=== PATIENT | male | born 1980 | race Caucasian/White ===

== ENCOUNTER 2017-07-24 20:15 | Emergency (ER) | payer MEDICAID ==
[~2017-07-24] VITALS: Ht 167.6 cm; Wt 72.6 kg
[2017-07-24 20:15] VITALS: BP_SYST 128
[~2017-07-24 20:15] MED LIST: DOXY100T2 PO; IBUP-1969; SULF1TAB48 PO
[2017-07-24] MEDS: LIDOCAINE 2%, 20 ML MDV IJ ONE (23:54)
[2017-07-24] MEDS: DIPH-TET-PERTUS Vaccine 0.5 ML VIAL (ADACEL) I.M. ONE (23:56)
[2017-07-24] MEDS: KETOROLAC TROMETHAMINE 60 MG/2 ML VIAL IM ONE (23:58)
[2017-07-24] MEDS ORDERED: BACITRACIN 1 GM OINT TP ONE (23:59)
[2017-07-25 00:11] VITALS: BP_SYST 132
== END 2017-07-25 00:11 | disposition home or self-care (01) ==
LOC: SED 20:15
DX: S61.210A Laceration without foreign body of right index finger without damage to nail, initial encounter (principal); Z88.1 Allergy status to other antibiotic agents; W31.89XA Contact with other specified machinery, initial encounter; Y93.89 Activity, other specified; Y92.89 Other specified places as the place of occurrence of the external cause; Y99.8 Other external cause status
CPT/HCPCS: 12002; 90471; 90715; 96372; 99284; J1885

== ENCOUNTER 2020-01-31 23:54 | Emergency (ER) | payer MEDICAID ==
[~2020-01-31] VITALS: Ht 170.2 cm; Wt 72.6 kg
[2020-01-31 23:54] VITALS: BP_SYST 152
--- NOTE | 2020-02-01 00:05 | NUR ---
Patient triaged and placed in waiting room. VSS and patient appears in no acute distress at this time. Awaiting available bed, and MD notified of need for MSE.
--- NOTE | 2020-02-01 00:20 | NUR ---
Patient to ER bed 3 to gown for evaluation. Side rails up. Report given to EFRAÍN Vieyra.
--- NOTE | 2020-02-01 00:25 | NUR ---
patient is alert and oriented x4 and is ind[place]ian speaking. patient complains of left shoulder, elbow, back, and chest pain that started on tuesday. patient states pain feels like pressure and 'cold air' when he inhales. patient states he feels pain when he breathes in deeply. Patient rates his pain a 7 out of 10. patient states ibuprofen relieves his pain a bit but he did not take it today. Patient states his pain is starting to travel to his right side. Patient states his pain started when he was moving fruniture but denies falling or feeling like he pulled a muscle. Patient states he feels shortness of breath when walking and when he turns his head. Patient states he had PNA in september. patient denies nausea, vomiting, diarrhea, fever, cough, sore throat.
--- NOTE | 2020-02-01 00:31 | NUR ---
ER at bedside examining patient.
[2020-02-01] MEDS ORDERED: KETOROLAC TROMETHAMINE 30 MG VIAL IM ONE (00:45)
--- NOTE | 2020-02-01 00:47 | NUR ---
# 18 gauge angiocath placed to RAC. Use of asceptic technique. Opsite placed over site. Blood return noted. Blood for lab drawn from site. Flushed with 10 cc of normal saline. No evidence of infiltration noted. Patient tolerated well.
--- NOTE | 2020-02-01 00:50 | NUR ---
Patient transported to radiology via walking, accompanied by
--- NOTE | 2020-02-01 00:54 | NUR ---
Note undone in ED - 02/01/20 at 0054 by TRACEY # 18 gauge angiocath placed to rac. Use of asceptic technique. Opsite placed over site. Blood return noted. Blood for lab drawn from site. Flushed with 10 cc of normal saline. No evidence of infiltration noted. Patient tolerated well.
[2020-02-01 01:05] LABS: BASOPHILS % (AUTO) 0.7 % (0.0-2.0); EOSINOPHILS # (AUTO) 0.2 K/uL (0.0-0.4); EOSINOPHILS % (AUTO) 2.8 % (0.0-4.0); HEMATOCRIT 48.7 % (36-54); HEMOGLOBIN 16.9 g/dL (14.0-18.0); LYMPHOCYTES # (AUTO) 1.9 K/uL (1.0-5.5); LYMPHOCYTES % (AUTO) 31.1 % (20.5-51.5); MEAN CORPUSCULAR HEMOGLOBIN 34 pg (27-31); MEAN CORPUSCULAR HGB CONC 35 % (32-36); MEAN CORPUSCULAR VOLUME 98 fL (79.0-98.0); MONOCYTES # (AUTO) 0.5 K/uL (0.0-1.0); MONOCYTES % (AUTO) 7.9 % (1.7-9.3); NEUTROPHILS # (AUTO) 3.5 K/uL (1.8-7.7); NEUTROPHILS % (AUTO) 57.5 % (40.0-70.0); PLATELET COUNT (AUTO) 210 K/uL (130-430); RED CELL DISTRIBUTION WIDTH 13.1 % (9.0-15.0); WHITE BLOOD COUNT (AUTO) 6.1 K/uL (4.8-10.8)
[2020-02-01 01:19] LABS: CALCIUM 8.7 mg/dL (8.4-11.0); CREATININE 0.71 mg/dL (0.55-1.30); POTASSIUM 3.7 mmol/L (3.5-5.1)
[2020-02-01 01:25] LABS: TOTAL BILIRUBIN 0.4 mg/dL (0.0-1.0)
[2020-02-01] MEDS: KETOROLAC TROMETHAMINE 30 MG VIAL IVP ONE (01:42)
--- NOTE | 2020-02-01 01:42 | NUR ---
patient tolerated medications well.
[2020-02-01 02:19] VITALS: BP_SYST 120
--- NOTE | 2020-02-01 02:19 | NUR ---
Patient given written and verbal discharge instructions and verbalizes understanding. ER MD discussed with patient the results and treatment provided. Patient in stable condition. ID arm band removed. IV catheter removed intact and dressing applied, no active bleeding. Rx of motrin given. Patient educated on pain management and to follow up with PMD. Pain Scale 5/10. Patient will picked up prescribed medications. Opportunity for questions provided and answered. Medication side effect fact sheet provided.
== END 2020-02-01 02:19 | disposition home or self-care (01) ==
LOC: SED 23:54
DX: M25.512 Pain in left shoulder (principal); R07.89 Other chest pain; I10 Essential (primary) hypertension; E11.9 Type 2 diabetes mellitus without complications; Z79.899 Other long term (current) drug therapy; Z88.1 Allergy status to other antibiotic agents
CPT/HCPCS: 36415; 71046; 73030; 80053; 83880; 84484; 85025; 85379; 96374; 99284; J1885

== ENCOUNTER 2023-08-31 17:12 | Emergency (ER) | payer MEDICAID ==
[~2023-08-31] VITALS: Ht 172.7 cm; Wt 63.5 kg
[2023-08-31 17:17] VITALS: BP_SYST 153; PULSE 95; RESP 19; TEMP 97.6; O2SAT 97
[2023-08-31 18:38] LABS: BILIRUBIN,URINE NEGATIVE (NEGATIVE); BLOOD, URINE NEGATIVE (NEGATIVE); CLARITY/URINE CLEAR (CLEAR); COLOR,URINE YELLOW (YELLOW); GLUCOSE,URINE NEGATIVE (NEGATIVE); KETONES,URINE NEGATIVE (NEGATIVE); LEUKOCYTE ESTERASE ,URINE NEGATIVE (NEGATIVE); NITRITE, URINE NEGATIVE (NEGATIVE); PH,URINE 7.5 (5.0-8.0); PROTEIN URINE NEGATIVE (NEGATIVE)
[2023-08-31 19:12] LABS: COVID19 ANTIGEN SOFIA FIA NEGATIVE (NEGATIVE)
[2023-08-31 19:13] LABS: INFLUENZA TYPE A Negative (NEGATIVE); INFLUENZA TYPE B NEGATIVE (NEGATIVE)
[2023-08-31 19:16] LABS: STREPTOCOCCUS A SCREEN (RAPID) NEGATIVE (NEGATIVE)
[2023-08-31] MEDS ORDERED: ZIT250 PO (19:17)
[2023-08-31] MEDS ORDERED: IBUP-1969 PO (19:17)
[2023-08-31 19:40] VITALS: BP_SYST 150; PULSE 92; RESP 18; TEMP 97.8; O2SAT 97
== END 2023-08-31 19:40 | disposition home or self-care (01) ==
LOC: SED 17:12
DX: J36 Peritonsillar abscess (principal); M79.10 Myalgia, unspecified site; R10.9 Unspecified abdominal pain; Z88.1 Allergy status to other antibiotic agents; Z79.899 Other long term (current) drug therapy; Z20.822 Contact with and (suspected) exposure to COVID-19
CPT/HCPCS: 36415; 81001; 81003; 86403; 87081; 99283

== ENCOUNTER 2024-01-15 04:01 | Emergency (ER) | payer MEDICAID ==
[~2024-01-15] VITALS: Ht 167.6 cm; Wt 75.3 kg
[~2024-01-15 04:01] MED LIST changes: +IBUP-1969 PO; +ZIT250 PO
[2024-01-15 04:15] VITALS: BP_SYST 147; PULSE 66; RESP 18; TEMP 98.2; O2SAT 100
[2024-01-15] MEDS: ONDANSETRON HCL 4 MG/2 ML VIAL IVP ONE (04:38)
[2024-01-15] MEDS: MORPHINE 4 MG INJ. 4 MG/ML VIAL IVP ONE (04:39)
[2024-01-15 05:22] LABS: BASOPHILS % (AUTO) 0.4 % (0.0-2.0); EOSINOPHILS # (AUTO) 0.1 K/uL (0.0-0.4); EOSINOPHILS % (AUTO) 1.5 % (0.0-4.0); HEMATOCRIT 47.2 % (36-54); HEMOGLOBIN 16.4 g/dL (14.0-18.0); LYMPHOCYTES # (AUTO) 1.9 K/uL (1.0-5.5); LYMPHOCYTES % (AUTO) 25.2 % (20.5-51.5); MEAN CORPUSCULAR HEMOGLOBIN 34 pg (27-31); MEAN CORPUSCULAR HGB CONC 35 % (32-36); MEAN CORPUSCULAR VOLUME 97 fL (79.0-98.0); MONOCYTES # (AUTO) 0.5 K/uL (0.0-1.0); MONOCYTES % (AUTO) 6.5 % (1.7-9.3); NEUTROPHILS # (AUTO) 4.9 K/uL (1.8-7.7); NEUTROPHILS % (AUTO) 66.4 % (40.0-70.0); PLATELET COUNT (AUTO) 228 K/uL (130-430); RED BLOOD CELL COUNT(AUTO) 4.89 MIL/uL (4.2-6.2); RED CELL DISTRIBUTION WIDTH 13.2 % (9.0-15.0); WHITE BLOOD COUNT (AUTO) 7.4 K/uL (4.8-10.8)
[2024-01-15 05:29] LABS: CALCIUM 8.7 mg/dL (8.4-11.0); CREATININE 0.85 mg/dL (0.55-1.30); POTASSIUM 3.5 mmol/L (3.5-5.1)
[2024-01-15 05:33] LABS: BILIRUBIN,DIRECT 0.1 mg/dL (0.0-0.3); TOTAL BILIRUBIN 0.6 mg/dL (0.0-1.0); TOTAL PROTEIN, SERUM 7.8 g/dL (6.4-8.3)
[2024-01-15] MEDS: KETOROLAC TROMETHAMINE 30 MG VIAL IVP ONE (05:57)
[2024-01-15] MEDS ORDERED: hydrALAZINE HCL 20 MG/ML VIAL IVP ONE (06:00)
[2024-01-15] MEDS ORDERED: IBUP-1971 PO (07:07)
[2024-01-15] MEDS ORDERED: HYDR-3917 PO (07:07)
[2024-01-15 07:38] VITALS: BP_SYST 135; PULSE 71; RESP 17; TEMP 97.1; O2SAT 96
== END 2024-01-15 07:29 | disposition home or self-care (01) ==
LOC: SED 04:01
DX: K80.50 Calculus of bile duct without cholangitis or cholecystitis without obstruction (principal); R10.13 Epigastric pain; Z88.1 Allergy status to other antibiotic agents; Z79.899 Other long term (current) drug therapy
CPT/HCPCS: 99285; 74176; 96374; 96375; 80076; 80048; 83690; 85025; 36415; J1885; J2405; J2270